=== PATIENT | female | born 1990 | race Caucasian/White ===

== ENCOUNTER 2023-04-07 09:35 | Inpatient (IN) | payer MEDICAID, SELFPAY ==
--- NOTE | 2023-03-30 17:06 | HP.PCM.OB_ITS ---
HPI - General General Date of Admission: 04/07/23 Date of Service: 04/07/23 HPI Narrative ? HPI: The patient is a 33 year old female presenting for pre-operative visit. She is scheduled for , for previous c/s on 04/07/23. Procedure discussed along with risks, benefits and complications. Other alternatives discussed for management. Consent form signed? Yes. ? ? PAST MEDICAL HISTORY PAST MEDICAL HISTORY Diagnosis Date ? depression ? ? ? PAST SURGICAL HISTORY PAST SURGICAL HISTORY Procedure Laterality Date ? DELIVERY ONLY ? 10/09/2018 ? ? ? CURRENT MEDICATIONS Current Outpatient Medications Medication Sig Dispense Refill ? [id number] 267 mcg-321 mg- 250 mg CPTw Take by mouth. ? ? ? No current facility-administered medications for this visit. ? ? ALLERGIES: Patient has no known allergies. ? PERSONAL HISTORY: SOCIAL HISTORY Social History ? Tobacco Use ? Smoking status: Never ? Smokeless tobacco: Never Vaping Use ? Vaping Use: Never used Substance Use Topics ? Alcohol use: Not Currently ? ? Comment: Occasionally ? Drug use: Never ? FAMILY HISTORY: FAMILY HISTORY FAMILY HISTORY Problem Relation Age of Onset ? No Known Problems Mother ? ? No Known Problems Father ? ? No Known Problems Brother ? ? No Known Problems Maternal Grandmother ? ? No Known Problems Maternal Grandfather ? ? No Known Problems Paternal Grandmother ? ? other (MVA) Paternal Grandfather ? ? No Known Problems Son ? ? ? REVIEW OF SYMPTOMS: GENERAL: denies fevers or chills ENDOCRINOLOGY: has not been on steroids Cardiology : denies palpitations or chest pain Respiratory: denies SOB or cough Hematology: denies history of prolonged bleeding or easy bruising or VTE Allergy: Denies history of personal or family history of allergy to anesthesia ? PHYSICAL EXAMINATION: ? VITALS: Last menstrual period 07/08/2022. ? GENERAL: The patient is well nourished, well hydrated in no acute distress. , The patient is oriented to time, place, and person. NECK: Supple. No lynphadenopathy, normal thyroid, no thyromegaly. LUNGS: Clear to auscultation bilaterally. no wheezes, rhonchi or rales HEART: Regular rate and rhythm, Normal heart sounds, and No murmurs or gallops abd- soft, nontender, gravid ? IMPRESSION: LUCHO ? PLAN: The risks/benefits/alternatives and personal involved for the planned c- section were reviewed with the patient. Her questions were answered to her satisfaction and she desires to proceed. Consent was signed. I reviewed with her postop instructions and expectations. ? ? I have reviewed and updated past medical and surgical history, medications and allergies Maternal Data Information Final LUCHO: 04/14/23 Gestational age: 39 weeks on 04/07 Labs Labs Labs: No Data to Display Assessment & Plan (1) 39 weeks gestation of : (2) Previous delivery affecting :
[2023-04-07] VITALS (15 sets, daily range): BP systolic 65–125; BP diastolic 30–77; PULSE 69–104; RESP 13–19; TEMP 35.6–36.7; O2SAT 98–100; BMI 36.0
[2023-04-07] MEDS: Lactated Ringers 1,000 ML 999 ML IV (10:50)
[2023-04-07 11:14] LABS: Absolute Lymphocyte Count 1.43 X10^3/uL (0.83-4.51); Absolute Neutrophil Count 6.8 X10^3/uL (2.0-7.7); Basophil# 0.02 X10^3/uL; Basophil% 0.2 % (0-1); Eosinophil# 0.04 X10^3/uL; Eosinophils% 0.5 % (0-5); Hemoglobin 10.2 g/dL (12.0-15.0); Lymphocyte # 1.43 X10^3/ul (0.83-4.51); Lymphocyte % 16.2 % (19-41); Mean Corpuscular Hgb 24.6 pg (27.0-32.0); Mean Corpuscular Volume 81.9 fL (81-99); Mean Platelet Vol. 11.8 fl (6.2-12.0); Monocyte% 5.6 % (0-10); NRBC Flagged by Analyzer 0 % (0-5); Neutrophil % 76.8 % (47-70); Platelet Count 252 K/mm3 (150-450); RBC Distribution Width CV 13.2 % (11.6-14.6); RBC Distribution Width SD 39.2 fl (35.1-43.9); Red Blood Count 4.15 M/mm3 (4.2-5.4); White Blood Count 8.9 K/mm3 (4.4-11.0)
[2023-04-07] MEDS: Acetaminophen 500 MG Tablet 1000 MG PO (11:42)
[2023-04-07 11:57] LABS: Syphilis Antibodies Non-reactive
[2023-04-07] MEDS: Sodium Citrate/Citric Acid 30 ML UDC PO (11:58)
[2023-04-07] MEDS: Cefazolin 2 GM in 0.9% Normal Saline (100mL Bag) 100 ML IV (12:10)
--- NOTE | 2023-04-07 12:23 | OP.PCM_ITS ---
Assessment & Plan (1) Previous delivery affecting : (2) 39 weeks gestation of : Maternal Data Information Final LUCHO: 04/14/23 Gestational age: 39 Details Operative Information Date of Procedure: 04/07/23 Pre-Operative Diagnosis: previous c/s Post-Operative Diagnosis: same Indications for : Repeat Elective Classification: Scheduled Procedure Type: low transverse suppression crew leader #1: Noemy Harris Type of Anesthesia: Spinal Anesthesiologist: Ra Gary Special Medications: duramorph Antibiotic Given: Ancef 2 grams IV x1 Drain: Jamil to straight drain Estimated Blood Loss: 700 Fluids Replaced: 1000 Procedure Start Time: 12:31 Procedure Stop Time: 13:03 Time of Delivery: 12:34 Findings Description of Procedure: The patient was taken to the operating room. She was prepped and draped in the dorsal supine position with a leftward tilt. A Pfannenstiel skin incision was made approximately 2 cm above the symphysis pubis and carried through to underlying layer fascia with the scalpel. The fascia was incised incised in the midline and extended laterally with the Anguiano scissors. . The rectus muscles were in the midline and the peritoneum was entered bluntly. The peritoneal incision was stretched and the bladder blade was placed. The uterine incision was made in a low transverse fashion with the scalpel and extended superiorly and inferiorly with blunt dissection. The amniotic membranes were ruptured bluntly and clear amniotic fluid returned. The infant's head was brought to the incision in the flexed position and delivered without difficulty. The remainder of the infant was delivered with gentle traction and fundal pressure in the standard fashion. The mouth and nares were bulb suctioned. The cord was clamped and cut as the was stimulated. Cord clamping was delayed. The was handed off to the waiting nursing staff. The placenta was delivered with fundal massage and gentle traction in the standard fashion. The uterus was exteriorized and cleared of all clots and debris. The cervix was dilated with a ring forcep. The uterine incision was closed with #1 Vicryl in a running locked fashion. 2 [id number]-sb-povdc 0 Vicryl sutures were needed to obtain hemostasis and bleeding sinuses. The incision was examined and was found to be hemostatic. The uterus was placed back into the peritoneal cavity and hemostasis was again confirmed. The rectus muscles were examined and any bleeding was Bovie cauterized. The parietal peritoneum and rectus muscles were closed en bloc with an 0 Vicryl running suture. The surgical teams outer gloves were then changed. The rectus fascia was examined and any bleeding was Bovie cauterized and the rectus fascia was closed with 1 Vicryl suture in a running standard fashion. The subcutaneous tissue was examining and any bleeding was Bovie cauterized. The subcutaneous tissue was reapproximated with 3-0 Vicryl suture. The skin was closed in a subcuticular fashion. I performed the entire procedure with assistance. All sponge, lap, and needle counts were correct. The patient was taken to her room for recovery in a stable condition. Presentation: Positive for Vertex Amniotic Membrane Rupture Type: Artificial Amniotic Fluid Description: Clear Placental Delivery Description: Expressed Placenta [facility]position: [facility] Cord Vessel Description: 3 Vessels Cord Entanglement: None Infant A Gender: Female (1 minute): 8 (5 minute): 9 Delayed Cord Clamping: Yes Complications Complications: none Admit VTE Documentation VTE Mechan Device Prophylaxis: SCD's VTE Pharm Prophylaxis Ordered: No Reason Prophylaxis Not Ordered: Procedure Not Indicated
[2023-04-07] MEDS: Oxytocin 15 Units/NS 250ml 15 UNITS/250 ML IV.SOLN 83 UNITS IV (13:25)
[2023-04-07] MEDS: LACTATED RINGERS 500 ML 999 ML IV (13:35)
[2023-04-07] MEDS: Ketorolac 30 MG/ML Syringe IV ×2 (14:18→19:59)
[2023-04-07] MEDS: Ondansetron 4 MG/2 ML Vial IV (17:02)
[2023-04-07] MEDS: Lactated Ringers 1,000 ML 100 ML IV (17:03)
[2023-04-07] MEDS: proCHLORPERazine 10 MG/2 ML Vial IV (21:24)
[2023-04-08 00:02] VITALS: BP 107/84; PULSE 104; RESP 16; TEMP 36.1; O2SAT 97
[2023-04-08] MEDS: Ketorolac 30 MG/ML Syringe IV ×2 (02:24→07:51)
[2023-04-08] MEDS: Lactated Ringers 1,000 ML 100 ML IV (03:21)
[2023-04-08 03:23] VITALS: BP 119/63; PULSE 97; RESP 16; TEMP 36.1; O2SAT 98
[2023-04-08] MEDS: Acetaminophen 500 MG Tablet 1000 MG PO ×2 (06:13→14:05)
[2023-04-08 06:44] LABS: Hematocrit 29.8 % (37-47); Hemoglobin 9.2 g/dL (12.0-15.0); Mean Corp Hgb Conc 30.9 g/dL (32-36); Mean Corpuscular Hgb 24.9 pg (27.0-32.0); Mean Corpuscular Volume 80.8 fL (81-99); Mean Platelet Vol. 11.1 fl (6.2-12.0); Platelet Count 210 K/mm3 (150-450); RBC Distribution Width CV 13.2 % (11.6-14.6); RBC Distribution Width SD 38.6 fl (35.1-43.9); Red Blood Count 3.69 M/mm3 (4.2-5.4); White Blood Count 11.2 K/mm3 (4.4-11.0)
[2023-04-08] MEDS: 0.9% Saline Lock 10 ML Syringe IV (07:50)
[2023-04-08 08:00] VITALS: BP 109/60; PULSE 89; RESP 16; TEMP 36.2
--- NOTE | 2023-04-08 08:20 | PN_ITS ---
Subjective Subjective patient seen at bedside, doing well. Patient reports good pain control. lochia mild. vincent catheter just removed. denies flatus. Objective Data Objective Data Vital Signs: Vital Signs Temp Pulse Resp BP Pulse Ox O2 Del Method 97.0 F L 97 16 119/63 98 Room Air 04/08/23 03:23 04/08/23 03:23 04/08/23 03:23 04/08/23 03:23 04/08/23 03:23 04/08/23 03:23 Oxygen Delivery Method Room Air Weight: 83.688 kg Body Mass Index (BMI) 36.0 Intake & Output: Intake and Output for Last 24 Hours 04/06/23 04/07/23 04/08/23 23:59 23:59 23:59 Intake Total 2410.00 / 2410.00 1000 / 1000 Output Total 1500 / 1500 300 / 300 Balance 910.00 / 910.00 700 / 700 Lab / Micro Data 04/08/23 06:35 Labs: Laboratory Results - last 24 hr 04/07/23 10:50: WBC 8.9, RBC 4.15 L, Hgb 10.2 L, Hct 34.0 L, MCV 81.9, MCH 24.6 L, MCHC 30.0 L, RDW Std Deviation 39.2, RDW Coeff of Leni 13.2, Plt Count 252, MPV 11.8, Immature Gran % (Auto) 0.700, Neut % (Auto) 76.8 H, Lymph % (Auto) 16.2 L, Webster % (Auto) 5.6, Eos % (Auto) 0.5, Baso % (Auto) 0.2, Absolute Neuts (auto) 6.8, Absolute Lymphs (auto) 1.43, Nucleated RBC % 0, Syphilis Total Ab Non-reactive, Blood Type B POSITIVE, Antibody Screen NEGATIVE 04/08/23 06:35: WBC 11.2 H, RBC 3.69 L, Hgb 9.2 L, Hct 29.8 L, MCV 80.8 L, MCH 24.9 L, MCHC 30.9 L, RDW Std Deviation 38.6, RDW Coeff of Leni 13.2, Plt Count 210, MPV 11.1 Physical Exam Narrative abd: fundus firm. dressing dry and intact. Const alert and oriented x3 General Appearance: cooperative HEENT normocephalic Neck General: normal visual inspection GI soft to palpation and non-distended GI Narrative: Fundus firm Extremity normal to inspection and no calf tenderness Skin no rashes or lesions noted Neuro oriented x3 and CN's II-XII intact bilaterally Psych mental status grossly normal
--- NOTE | 2023-04-08 12:54 | CASEMGMT ---
Social Work Assessment Labor and Delivery Unit Patient Address:[address] [place] [address] [address], [place] [address] Phone number: [phone] Date of Referral: 04/07/23 Time of Referral:? 1829 Referred By: Jai Leslie Date of Intervention: ?04/08/23? Time of Intervention:? 1100 Reason for Referral:? maternal h/o depression Sw completed chart review and acknowledged social work consult due to maternal history of depression. Sw presented to bedside and introduced self to mother of baby (NICHOLE- Tami) and father of baby (EMILI- Rasheed). Sw explained reason for sw involvement and completed psychosocial assessment. History obtained from: medical records, MOB and EMILI Household composition: Currently residing in the home is EMILI VARELA, their 4 year old son, Dev, and now baby. Parents deny and issues or concerns with housing at this time. Patient's parent/guardian status:? Parents have been together for 11 years, they met while in high school together. Parents now have two children together. No concerns of domestic violence or intimate partner violence at this time. ? Medical History: ?NICHOLE is 33 year old, single, female who is 2, para 1-now 2 following delivery of . NICHOLE received routine care during with [facility]. NICHOLE delivered baby via repeat on 04/07/23. [place] baby girl, named Jorge, was born weighing 7lb 12 oz and her apgars were 8 and 9 at one and five minutes of life respectfully. NICHOLE states that she is breast feeding and it is going well. NICHOLE reports that baby will be followed by Dr. Muir for pediatrics. Educational Status:? Both parents graduated from high school. EMILI states that he attended some college but he did not obtain a degree. Financial Status: Both parents are gainfully employed outside of the home. 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 NICHOLE states that she is able to take off 12 weeks for maternity leave. Supplies:?Family has obtained all necessary baby supplies including: car seat, safe sleep space, clothes, diapers, wipes and a breast pump. Childcare/Caregiver(s):? When both parents are working they have an in-home childrens club attendant provider that they use, along with paternal grandma. Transportation:?? Both parents have their drivers license and reliable means of transportation. No transportation barriers at this time. Programs/Agencies Involved: NICHOLE is connected to [employer] insurance through [employer]. No other linkage to community [employer] at this time. ??? Children Services/Legal Issues:??No history of involvement with Children Services, no issues or concerns warranting a referral to be made at this time. ? Behavioral Health Issues: ??Mental Health History:??FOB states that he has anxiety, but is not prescribed medications and does not feel as though it affects his day to day. NICHOLE has history of depression, but denies that she has been diagnosed with any other mental health diagnoses. MOB states that when she had depression following the of their first baby she was very sad and sedentary. MOB states that she those symptoms lasted a couple of weeks. NICHOLE completed an [place] Depression scale and her score was a 14. Sw provided education and provided support. Sw explained to MOB that it would be beneficial for her to get connected to a mental health worker during her journey as a preventative measure. MOB expressed understanding. ? Substance Use History:?MOB denies substance use prior to and during .? Family History:?MOB denies family history of addiction and mental health. ? Drug Screens: NO urine screens observed in chart review. ?? Family/Social Stressors:? No concerns or stressors expressed during assessment. Support Systems: Parents state that they have a lot of natural supports found in their mothers. Depression/Shaken Baby/Safe Sleeping:? Sw educated parents on signs and symptoms of baby blues and depression. Parents expressed understanding. Sw educated parents on shaken baby prevention and ABCs of safe sleep. Parents expressed understanding. ASSESSMENT:? MOB and baby admitted following labor and delivery. MOB stated that she felt sick following her scheduled repeat and the nausea made her extremely anxious. MOB was talkative with sw, made appropriate eye contact and answered questions asked. FOB talkative and engaging during assessment. MOB observed to hold baby appropriately and lovingly. MOB informed that she would benefit from getting connected to mental health supports throughout her period. MOB understanding and receptive to recommendation. List of resources provided to MOB. PLAN:? MOB and baby to be discharged when medically ready. ?No other services requested or indicated. Fiona Salazar TECHNICAL TRAINING SPECIALIST, OFFICE ELECTRICIAN
[2023-04-08 13:57] VITALS: BP 113/72; PULSE 93; RESP 16; TEMP 36.2
[2023-04-08] MEDS: Senna/Docusate Sodium 1 Tablet PO (14:04)
[2023-04-08] MEDS: Ibuprofen 600 MG Tablet PO (14:04)
--- NOTE | 2023-04-08 14:05 | DCINST_ITS ---
Discharge Instructions Diet Discharge Diet: No restrictions Activity Discharge Activity: May Drive (once you feel strong enough to slam a brake or turn a steering wheel sharply) and May Shower May resume sexual activity in: 6 weeks Weight Bearing Status: Weight bearing as tolerated Lifting Restrictions: nothing heavier than baby Dressing / Incision Call your doctor if your incision/area has: Continuous Slow Oozing, Sudden Increased Bleeding, Increased Pain/ Swelling, Increased Redness, Foul Smelling Discharge and Swelling at the incision site Call your doctor if you observe: Fever of 101 or Higher, Coldness, Increased Pain, Numbness or Tingling, Change in Color, Inability to urinate, Inability to have a bowel movement, Using more than 1 pad per hour, Shortness of breath, Dizziness, Fainting spells, Swelling in the ankles, Chest pain, Increased palpitations (irregular heartbeat), Calf discomfort and Uncontrolled pain Suture Line Care: Avoid Pulling/Pushing and Avoid Pinching/Bending Remove Dressing in: 4 days Cleanse incision/area with: Soap & Water Follow Up Care Please Follow Up With: Laura Youssef MD When: 1-2 weeks for incision check 6 weeks for visit Test Results: Test results from this visit will be discussed in further detail at your follow- up appointment, if applicable. Discharge Plan Admission Admit Date/Time: 04/07/23 09:35 Primary Reason for Your Visit: surgery Attending Provider: Laura Youssef Instructions Patient Instructions: After a Discharge Orders/Prescriptions Prescriptions: New oxycodone 5 mg tablet 5 mg PO Q6H PRN (Reason: pain) 7 Days Qty: 10 0RF ibuprofen 600 mg tablet 600 mg PO Q6H PRN (Reason: pain) Qty: 30 0RF docusate sodium [Colace] 100 mg capsule 100 mg PO BID PRN (Reason: constipation) Qty: 30 0RF Continued 19 29 mg iron- 1 mg tablet,chewable 1 tab PO DAILY Disposition Disposition (needs filled in before D/C Order can be placed): Home, Self Care
== END 2023-04-08 15:20 | disposition home or self-care (01) | DRG 540 ==
PROVIDERS: Admitting Provider Obstetrics & Gynecology; Visit Provider Obstetrics & Gynecology
PROC: 10D00Z1 Extraction of Products of Conception, Low, Open Approach (ICD-10-PCS; CPT 59514; principal; 2023-04-07 11:45)
DX: O34.219 Maternal care for unspecified type scar from previous cesarean delivery (principal); Z37.0 Single live birth; Z3A.39 39 weeks gestation of pregnancy
CPT/HCPCS: 59025; 59050; 85025; 85027; 86780; 86850; 86900; 86901; 99221; 99252; J7120; A4216; G0378; G0463; J2405

== ENCOUNTER 2024-07-24 09:44 | Inpatient (IN) | payer MEDICAID, SELFPAY ==
--- NOTE | 2024-07-18 11:36 | HP.PCM_ITS ---
History and Physical Date of Admission: 08/01/24 HPI: The patient is a 34 year old female presenting for pre-operative visit. She is scheduled for and bilateral salpingectomy, for 39 weeks, previous , sterilization request on 08/01/24. Procedure discussed along with risks, benefits and complications. Other alternatives discussed for management. Consent form signed? Yes. ? ? PAST MEDICAL HISTORY PAST MEDICAL HISTORYDiagnosisDate?Anesthesia complication12/26/2023?Generalized anxiety disorder??patient states she has never been formally dx but feels anxious at time.? depression? ? ? PAST SURGICAL HISTORY PAST SURGICAL HISTORYProcedureLateralityDate? DELIVERY ONLY?10/09/2018? DELIVERY ONLY?04/07/2023?[facility] ? ? ? CURRENT MEDICATIONS Current Outpatient MedicationsMedicationSigDispenseRefill?triamcinolone (KENALOG) 0.025 % creamApply to affected area two times a day.80 g0?aspirin, enteric coated (ECOTRIN LOW STRENGTH) 81 mg EC tabletTake 1 tablet by mouth once daily.90 tablet3? Lvvxkvyn-Ow-Smz-Fe-FA tabTake 1 tablet by mouth once daily. With folic acid and dha as covered by [id number] tablet3?FLUoxetine (PROZAC) 40 mg capsuleTake 1 capsule by mouth once daily.30 capsule2?Ferrous Gluconate (FERGON) 324 mg (38 mg iron) tabletTake 1 tablet by mouth every other day. (Patient not taking: Reported on 06/08/2024)15 tablet3?P [id number]--xwu 267 mcg-321 mg- 250 mg CPTwTake by mouth.???No current facility-administered medications for this visit. ? ? ALLERGIES: Patient has no known allergies. ? PERSONAL HISTORY: SOCIAL HISTORY Social History?Tobacco Use?Smoking status:Never?Smokeless tobacco:NeverVaping Use?Vaping status:FormerSubstance Use Topics?Alcohol use:Not Currently??Comment: Occasionally?Drug use:Never ? FAMILY HISTORY: FAMILY HISTORY FAMILY HISTORY ProblemRelationAge of Onset?No Known ProblemsMother??No Known ProblemsFather??No Known ProblemsBrother??No Known ProblemsMaternal Grandmother??No Known ProblemsMaternal Grandfather??No Known ProblemsPaternal Grandmother??other (MVA)Paternal Grandfather??No Known ProblemsSon? ? ? REVIEW OF SYMPTOMS: GENERAL: denies fevers or chills ENDOCRINOLOGY: has not been on steroids Cardiology : denies palpitations or chest pain Respiratory: denies SOB or cough Hematology: denies history of prolonged bleeding or easy bruising or VTE Allergy: Denies history of personal or family history of allergy to anesthesia ? PHYSICAL EXAMINATION: ? VITALS: Blood pressure 106/60, weight 83.5 kg (184 lb), last menstrual period 11/02/2023, not currently . ? GENERAL: The patient is well nourished, well hydrated in no acute distress. , The patient is oriented to time, place, and person. NECK: Supple. No lynphadenopathy, normal thyroid, no thyromegaly. LUNGS: Clear to auscultation bilaterally. no wheezes, rhonchi or rales HEART: Regular rate and rhythm, Normal heart sounds, and No murmurs or gallops abd- soft, nontender, gravid ? IMPRESSION: Estimated Date of Delivery: 08/08/24 previous c/s, steriloization request. ? PLAN: The risks/benefits/alternatives and personal involved for the planned C- section with bilateral salpingectomy were reviewed with the patient. Her questions were answered to her satisfaction and she desires to proceed. Consent was signed. I reviewed with her postop instructions and expectations. ? ? I have reviewed and updated past medical and surgical history, medications and allergies Assessment & Plan Assessment/Plan (1) 39 weeks gestation of : (2) Sterilization:
[2024-07-24] VITALS (16 sets, daily range): BP systolic 98–123; BP diastolic 54–94; PULSE 63–103; RESP 14–16; TEMP 36.5–36.7; O2SAT 98–100; BMI 34.7
[2024-07-24] MEDS: Lactated Ringers 1,000 ML 999 ML IV (10:25)
[2024-07-24 10:46] LABS: Absolute Lymphocyte Count 1.68 X10^3/uL (0.83-4.51); Basophil# 0.02 X10^3/uL; Basophil% 0.2 % (0-1); Eosinophil# 0.07 X10^3/uL; Eosinophils% 0.8 % (0-5); Hematocrit 32.8 % (37-47); Hemoglobin 10.4 g/dL (12.0-15.0); Lymphocyte # 1.68 X10^3/ul (0.83-4.51); Lymphocyte % 18.2 % (19-41); Mean Corp Hgb Conc 31.7 g/dL (32-36); Mean Corpuscular Hgb 24.6 pg (27.0-32.0); Mean Corpuscular Volume 77.7 fL (81-99); Mean Platelet Vol. 11.5 fl (6.2-12.0); Monocyte# 0.37 X10^3/uL; NRBC Flagged by Analyzer 0 % (0-5); Neutrophil # 7.02 X10^3/uL (2.7-7.7); Neutrophil % 76.3 % (47-70); Platelet Count 262 K/mm3 (150-450); RBC Distribution Width CV 14.5 % (11.6-14.6); RBC Distribution Width SD 40.5 fl (35.1-43.9); Red Blood Count 4.22 M/mm3 (4.2-5.4); White Blood Count 9.2 K/mm3 (4.4-11.0)
[2024-07-24 11:15] LABS: Syphilis Antibodies Nonreactive (Nonreactive)
[2024-07-24] MEDS: Acetaminophen 500 MG Tablet 1000 MG PO ×3 (11:15→23:26)
[2024-07-24] MEDS: Lactated Ringers 1,000 ML 150 ML IV (11:23)
[2024-07-24] MEDS: Sodium Citrate/Citric Acid 30 ML UDC PO (11:58)
[2024-07-24] MEDS: TRANEXAMIC ACID 1,000 MG in 0.9% Normal Saline (100mL Bag) 100 ML 440 MG IV (12:14)
[2024-07-24] MEDS: Cefazolin 2 GM in Syringe IV (12:14)
--- NOTE | 2024-07-24 12:51 | EX.PCM.OBRPT ---
Maternal Data Information Final LUCHO: 08/08/24 Gestational age: 37 6/7 Operative Report (OB) Cecarean Details Procedure Type: low transverse (with bilateral salpingectomy) Date of Procedure: 07/24/24 Procedure Start Time: 12: Procedure Stop Time: 12:57 Time of Delivery: 12:29 Pre-Operative Diagnosis: Repeat Elective and Desires elective sterilization Post-Operative Diagnosis: Same as Pre-operative diagnosis Classification: Scheduled Type of Anesthesia: Spinal Special Medications: duramorph and txa Antibiotic Given: Ancef 2 grams IV x1 Drain: Jamil to straight drain Estimated Blood Loss: 800 Fluids Replaced: 1000 Findings Description of surgery: The patient was taken to the operating room. She was prepped and draped in the dorsal supine position with a leftward tilt. A Pfannenstiel skin incision was made approximately 2 cm above the symphysis pubis and carried through to underlying layer fascia with the scalpel. The fascia was incised incised in the midline and extended laterally with the Anguiano scissors. The fascia was dissected off the rectus muscles with blunt and sharp dissection. The rectus muscles were in the midline and the peritoneum was entered bluntly. The peritoneal incision was stretched and the bladder blade was placed. The uterine incision was made in a low transverse fashion with the scalpel and extended superiorly and inferiorly with blunt dissection. The amniotic membranes were ruptured bluntly and clear amniotic fluid returned. The 's head was brought to the incision in the flexed position and delivered without difficulty. The remainder of the was delivered with gentle traction and fundal pressure in the standard fashion. The mouth and nares were bulb suctioned. The cord was clamped and cut as the infant was stimulated. Cord clamping was delayed. The infant was handed off to the waiting nursing staff. The placenta was delivered with fundal massage and gentle traction in the standard fashion. The uterus was exteriorized and cleared of all clots and debris. The cervix was dilated with a ring forcep. The uterine incision was closed with #1 Vicryl in a running locked fashion. A second layer of the same suture was used in an imbricating fashion. The incision was examined and was found to be hemostatic. The uterus was placed back into the peritoneal cavity and hemostasis was again confirmed. The right fallopian tube was identified and followed out to the fimbriated end. The LigaSure device was used to clamp, seal and transect the antimesenteric portion of the tube away from the broad ligament and then used to amputate it from the cornual insertion into the uterus. Hemostasis of the pedicles was noted and same procedure was performed on the contralateral side. The rectus muscles were examined and any bleeding was Bovie cauterized. The parietal peritoneum and rectus muscles were closed en bloc with an 0 Vicryl running suture. The rectus fascia was examined and any bleeding was Bovie cauterized and the rectus fascia was closed with 1 Vicryl suture in a running standard fashion. The subcutaneous tissue was examining and any bleeding was Bovie cauterized. The subcutaneous tissue was reapproximated with 3-0 Vicryl suture. The skin was closed in a subcuticular fashion by the CLINICAL EXERCISE SPECIALIST with me present in the labor and delivery suite. I performed the remainder of the procedure with assistance. All sponge, lap, and needle counts were correct. The patient was taken to her room for recovery in a stable condition. Surgical findings: Vigorous male , Apgars are pending. Normal tubes and ovaries. Presentation: Vertex Amniotic Membrane Rupture Type: Artificial Amniotic Fluid Description: Clear Placenta Disposition: [facility] Specimen collected: Yes Description of specimen(s) removed: bilateral fallopian tubes Cord Vessel Description: 3 Vessels Cord Entanglement: None Infant A gender: Male (Jules) Delayed Cord Clamping: Yes Cylinder Handler biomathematician: Yes Pole Framer Machine: Luca Quintero Tasks completed by engineer first assistant: Closing, Hemostasis: Tie and Retracting Additional legal support assistant?: No Complications Complications: No
[2024-07-24] MEDS: Oxytocin 15 Units/NS 250ml 15 UNITS/250 ML IV.SOLN 83 UNITS IV (13:37)
[2024-07-24] MEDS: Ketorolac 30 MG/ML Syringe IV ×2 (13:51→20:11)
--- NOTE | 2024-07-24 14:00 | FALS_PTH ---
PATIENT: SENAIT ANDERSEN LOC: [facility] U#:[id number] AGE/SX: 34/F ROOM: WP007 RE07/24/[address]: Dr. Laura Youssef MD : 1990 BED: 1 DIS: 07/26/2024 SPEC #: [id number] RECD: 07/25/24 09:11 STATUS: SOTO GRACIA #: [id number] MARY JO: 07/24/24 14:[address]: Laura Youssef DEPT: SURGICAL PATHOLOGY RECD BY: Jesus Vitale ENTERED: 07/25/24 09:11 SP TYPE: FALL TUBES OTHR DR: Dr. Alfred Brush MD Tissues: A - Fallopian tube Procedures: Surgery Specimen Level II HEADER OPERATION: Tubal ligation PRE-OP DIAGNOSIS: Sterilization TISSUE SUBMITTED: A- Bilateral fallopian tubes MICROSCOPIC DIAGNOSIS A1. Right fallopian tube, resection: * No specific pathologic change. * Complete luminal cross-section confirmed. A2. Left fallopian tube, resection: * No specific pathologic change. * Complete luminal cross-section confirmed. MICROSCOPIC DESCRIPTION Slides are reviewed. GROSS DESCRIPTION A. Received in fixative is one container labeled with the patient's name and designated Fallopian tubes - suture in right tube. The specimen consists of two fallopian tubes with fimbriated ends. The right fallopian tube has a suture and measures 6cm in length and 0.7cm in diameter. The left fallopian tube measures 7cm in length and 0.6cm in diameter. [employer] Professor sections are taken: A1- right fallopian tube A2- left fallopian tube A3- fimbriated ends, bilateral JS. 07/25/2024 CPT:07516m5
[2024-07-24 19:53] LABS: Pathology Specimen OB SEE PATHOLOGY REPORT
[2024-07-24] MEDS: 0.9% Saline Lock 10 ML Syringe IV (20:11)
[2024-07-25] MEDS: Enoxaparin 40 MG/0.4 ML Syringe SC (02:10)
[2024-07-25] MEDS: Ketorolac 30 MG/ML Syringe IV ×2 (02:11→09:42)
[2024-07-25 03:21] VITALS: BP 107/76; PULSE 83; RESP 14; TEMP 36.6; O2SAT 100
[2024-07-25 03:32] LABS: Hematocrit 28.6 % (37-47); Hemoglobin 8.9 g/dL (12.0-15.0); Mean Corp Hgb Conc 31.1 g/dL (32-36); Mean Corpuscular Hgb 24.4 pg (27.0-32.0); Mean Corpuscular Volume 78.4 fL (81-99); Mean Platelet Vol. 11.3 fl (6.2-12.0); Platelet Count 257 K/mm3 (150-450); RBC Distribution Width CV 14.2 % (11.6-14.6); RBC Distribution Width SD 40.1 fl (35.1-43.9); Red Blood Count 3.65 M/mm3 (4.2-5.4); White Blood Count 13.9 K/mm3 (4.4-11.0)
[2024-07-25] MEDS: Acetaminophen 500 MG Tablet 1000 MG PO ×3 (06:56→18:24)
--- NOTE | 2024-07-25 08:29 | PCM.PN.BLA ---
Progress Note Pain well-controlled. Average lochia. No nausea or vomiting. Tolerating regular diet. Ambulating without difficulty and urinating without difficulty. Physical Exam Const alert General Appearance: cooperative GI GI Narrative: soft, moderate distention, fundus firm, appropriately tender. Abdominal bandage clean dry and intact Assessment & Plan Assessment/Plan (1) delivery delivered: (2) Antepartum anemia: PLAN: Plan day #1 status post repeat and tubal. Patient is doing well. is in special care nursery. Hopefully will be discharged out of special care tomorrow. Patient had chronic antepartum anemia. Blood count is appropriate for blood loss after surgery. Patient is tolerating anemia well. Will discharge home on iron. Continue routine postop care.
[2024-07-25] MEDS: 0.9% Saline Lock 10 ML Syringe IV (09:42)
[2024-07-25] MEDS: Fluoxetine HCl 40 MG CAPSULE PO (09:43)
[2024-07-25] MEDS: FLUoxetine 20 MG Capsule PO (09:43)
[2024-07-25] MEDS: Senna/Docusate Sodium 1 Tablet PO (09:43)
[2024-07-25 09:58] VITALS: BP 95/48; PULSE 82; RESP 16; TEMP 36.4; O2SAT 100
[2024-07-25] MEDS: oxyCODONE 5 MG Tablet PO ×2 (12:06→20:45)
[2024-07-25 14:30] VITALS: BP 127/62; PULSE 86; RESP 16; TEMP 36.6; O2SAT 97
[2024-07-25] MEDS: Naproxen 500 MG Tablet PO ×2 (14:46→23:10)
[2024-07-25 20:40] VITALS: BP 108/60; PULSE 82; RESP 16; TEMP 36.7; O2SAT 99
[2024-07-26] MEDS: Acetaminophen 500 MG Tablet 1000 MG PO ×2 (00:42→07:48)
[2024-07-26 02:35] VITALS: BP 103/63; PULSE 75; RESP 16; TEMP 36.6; O2SAT 98
[2024-07-26] MEDS: Naproxen 500 MG Tablet PO (06:28)
[2024-07-26] MEDS: Enoxaparin 40 MG/0.4 ML Syringe SC (06:28)
--- NOTE | 2024-07-26 08:44 | PCM.PN.OB ---
Subjective Subjective pt doing well. offers no complaints and desires discharge. pain controlled. Voiding and ambulating without difficulty. Lochia is normal. She denies chest pain, shortness of breath, leg pain, lightheadedness, dizziness. Objective Data Objective Data Vital Signs: Vital Signs Temp Pulse Resp BP Pulse Ox O2 Del Method 97.8 F 75 16 103/63 98 Room Air 07/26/24 02:35 07/26/24 02:35 07/26/24 02:35 07/26/24 02:35 07/26/24 02:35 07/26/24 02:35 Oxygen Delivery Method Room Air Weight: 184 lb 2 oz Body Mass Index (BMI) 34.7 Intake & Output: Intake and Output for Last 24 Hours 07/24/24 07/25/24 07/26/24 23:59 23:59 23:59 Intake Total 2222.5 / 2222.5 Output Total 1950 / 1950 700 / 700 Balance 272.5 / 272.5 -700 / -700 Lab / Micro Data 07/25/24 03:26 Physical Exam Const alert and no apparent distress General Appearance: comfortable HEENT normocephalic Resp normal respiratory effort GI soft to palpation and non-distended GI Narrative: ATTP, dressing c/d/i Assessment & Plan (1) Antepartum anemia: (2) delivery delivered: PLAN: Patient is postoperative day 2 from a section. Desires discharge home. Discharge instructions reviewed.
--- NOTE | 2024-07-26 08:51 | DCINST_ITS ---
Discharge Instructions Diet Discharge Diet: No restrictions DC O2, CPAP, BIPAP needs Home O2 Discharge instructions: No Dressing / Incision Discharge Activity: May Not Drive and May Shower May resume sexual activity in: 6 weeks Weight Bearing Status: Weight bearing as tolerated Lifting Restrictions: nothing heavier than baby Dressing / Incision Call your doctor if your incision/area has: Continuous Slow Oozing, Sudden Increased Bleeding, Increased Pain/ Swelling, Increased Redness, Foul Smelling Discharge and Swelling at the incision site Call your doctor if you observe: Fever of 101 or Higher, Coldness, Increased Pain, Numbness or Tingling, Inability to urinate, Inability to have a bowel movement, Using more than 1 pad per hour, Shortness of breath, Dizziness, Swelling in the ankles, Chest pain, Increased palpitations (irregular heartbeat), Calf discomfort and Uncontrolled pain Suture Line Care: Avoid Pulling/Pushing and Avoid Pinching/Bending Remove Dressing in: leave in place till F/U Cleanse incision/area with: Soap & Water Follow Up Care When: 1 week incision check 6 week visit Test Results: Test results from this visit will be discussed in further detail at your follow- up appointment, if applicable. Discharge Plan Admission Admit Date/Time: 07/24/24 09:44 Attending Provider: Laura Youssef Primary Care Provider: Alfred Brush Instructions Patient Instructions: Section () Discharge Orders/Prescriptions Prescriptions: New ibuprofen 600 mg tablet 600 mg PO Q6H PRN (Reason: pain) Qty: 20 0RF acetaminophen [Pain Relief (acetaminophen)] 325 mg tablet 650 mg PO Q6H PRN (Reason: pain) Qty: 20 0RF docusate sodium [Colace] 100 mg capsule 100 mg PO BID Qty: 20 0RF ferrous sulfate 325 mg (65 mg iron) tablet 325 mg PO QODAY Qty: 30 0RF oxycodone 5 mg tablet 5 mg PO Q6H PRN (Reason: pain) 7 Days Qty: 5 0RF Continued 19 29 mg iron- 1 mg tablet,chewable 1 tab PO DAILY fluoxetine 20 mg capsule 20 mg PO DAILY fluoxetine 40 mg capsule 40 mg PO DAILY Referrals / Follow Up: Alfred Brush MD [Primary Care Provider] - Disposition Disposition (needs filled in before D/C Order can be placed): Home, Self Care
[2024-07-26 10:00] VITALS: BP 114/81; PULSE 80; RESP 16; TEMP 36.4; O2SAT 98
[2024-07-26] MEDS: Senna/Docusate Sodium 1 Tablet PO (10:50)
[2024-07-26] MEDS: FLUoxetine 20 MG Capsule PO (10:50)
[2024-07-26] MEDS: Fluoxetine HCl 40 MG CAPSULE PO (10:50)
--- NOTE | 2024-08-01 18:19 | NURSING ---
Follow up phone call. Patient reports she is feeling well, no issues or sign or symptoms of pp complications. Has incision check and all looks well. is feeding well, and doing really well. Patient denies any questions or concerns at this time and was satisfied with her care while here.
== END 2024-07-26 11:30 | disposition home or self-care (01) | DRG 539 ==
PROVIDERS: Admitting Provider Obstetrics & Gynecology; PCP Internal Medicine; Referring Provider Obstetrics & Gynecology; Visit Provider Obstetrics & Gynecology
PROC: 10D00Z1 Extraction of Products of Conception, Low, Open Approach (ICD-10-PCS; CPT 59514; principal; 2024-07-24 11:45)
DX: O26.62 Liver and biliary tract disorders in childbirth (principal); K83.1 Obstruction of bile duct; O34.219 Maternal care for unspecified type scar from previous cesarean delivery; Z30.2 Encounter for sterilization; O99.02 Anemia complicating childbirth; Z37.0 Single live birth; Z3A.39 39 weeks gestation of pregnancy; Z79.899 Other long term (current) drug therapy
CPT/HCPCS: 36415; 59025; 59050; 85025; 85027; 86780; 86850; 86900; 86901; 88302; 99221; A4216; G0378; J2405